=== PATIENT | female | born 1970 | race Caucasian/White ===

== ENCOUNTER 2019-10-20 12:48 | Outpatient (CLI) | payer MEDICARE, MEDICAID, SELFPAY ==
--- NOTE | 2019-10-20 13:11 | MM_ITS ---
WS: [id number] BILATERAL DIGITAL SCREENING MAMMOGRAPHY WITH CAD CLINICAL INFORMATION: SCREENING HISTORY: Screening mammogram. Right breast burning. Bilateral breast reduction. COMPARISON: July 08, 2018 TECHNIQUE: Bilateral CC and MLO views. FINDINGS: Scattered fibroglandular densities bilaterally. No suspicious focal mass, asymmetry, calcifications, or architectural distortion. Lucent centered calcification. Dystrophic calcification right breast. No evidence of malignancy. MM/[id number] IMPRESSION: BI-RADS: 2-Benign FOLLOW UP: 1 Year Follow-up Recommend return to annual screening mammography.
== END 2019-10-20 12:49 | disposition home or self-care (01) ==
LOC: RADSHAW 12:56
PROVIDERS: Family Provider Family Medicine; PCP Family Medicine; Visit Provider Family Medicine
DX: Z12.31 Encounter for screening mammogram for malignant neoplasm of breast (principal)
CPT/HCPCS: 77067

== ENCOUNTER → 2020-01-14 08:06 | Outpatient (BNVA) | payer MEDICARE, MEDICAID, SELFPAY | PROVIDERS: Family Provider Family Medicine; PCP Family Medicine; Visit Provider Nurse Practitioner Psychiatric/Mental Health | DX: F33.42 Major depressive disorder, recurrent, in full remission (principal); F43.12 Post-traumatic stress disorder, chronic | CPT/HCPCS: 99213 ==

== ENCOUNTER → 2020-04-10 14:19 | Outpatient (BNVA) | payer MEDICARE, MEDICAID, SELFPAY | PROVIDERS: Family Provider Family Medicine; PCP Family Medicine; Visit Provider Specialist | DX: G56.02 Carpal tunnel syndrome, left upper limb (principal) | CPT/HCPCS: 73110 ==

== ENCOUNTER → 2020-04-14 07:41 | Outpatient (BNVA) | payer MEDICARE, MEDICAID, SELFPAY | PROVIDERS: Family Provider Family Medicine; PCP Family Medicine; Visit Provider Nurse Practitioner Psychiatric/Mental Health | DX: F33.42 Major depressive disorder, recurrent, in full remission (principal); F43.12 Post-traumatic stress disorder, chronic | CPT/HCPCS: 99213 ==

== ENCOUNTER → 2020-04-26 10:15 | Outpatient (BNVA) | payer MEDICARE, MEDICAID, SELFPAY | PROVIDERS: Family Provider Family Medicine; PCP Family Medicine; Visit Provider Internal Medicine | DX: G56.02 Carpal tunnel syndrome, left upper limb (principal) | CPT/HCPCS: 87635 ==

== ENCOUNTER 2020-04-28 05:50 | Day surgery (SDC) | payer MEDICARE, MEDICAID, SELFPAY ==
[2020-04-27 10:16] VITALS: BMI 37.5
[2020-04-28 06:00] VITALS: BP 141/94; PULSE 110; RESP 16; TEMP 36.7; O2SAT 100
--- NOTE | 2020-04-28 06:17 | ANES.PREANE2 ---
Pre-Anesthetic Assessment Pre-Anesthetic Assessment: Height/Weight: Height 1.57 m Weight 92.986 kg Temp Pulse Resp BP Pulse Ox 98.1 F 110 H 16 141/94 100 04/28/20 06:00 04/28/20 06:00 04/28/20 06:00 04/28/20 06:00 04/28/20 06:00 Preop Diagnosis: Left carpal tunnel syndrome Proposed Procedure: Operation Date: 04/28/20 07:00 Proposed Procedures p Carpal Tunnel Release 11949 G56.02(Left) - Nell Allan MD Familial anesthetic complications: None Was Beta Miriam taken within 24 hours: N/A Last intake: Intake Last Liquid Date 04/27/20 Last Liquid Time 18:00 Last Solid Date 04/27/20 Last Solid Time 18:00 Social: Social History: No alcohol and No tobacco Exam: Pre-Anes Outpt Exam: alert, oriented x 3, clear to auscultation bilaterally and regular rate & rhythm Airway: Cervical ROM: WNL MP: 4 Dentition: False Additional comments: small mouth opening Pulmonary: Pulmonary: Asthma CV/HEM: CV/HEM: HTN GI: GI: GERD Metabolic: Metabolic: Hyperlipidemia and Morbid obesity Neuropsych: Neuropsych: None reported Comments: PTSD Anesthetic Plan: ASA status: 2 Anesthesia: MAC Risk of > 500 ml blood loss (7ml/kg in children): No PFSH Anesthesia PFSH: Medical History Chronic post-traumatic stress disorder Major depressive disorder, recurrent, in full remission with anxious distress Female Reproductive History: Date of last menstrual period: 03/22/20 Data Anesthesia Cardiac Studies: No Data to Display
[2020-04-28] MEDS: CELEcoxib 200 mg Capsule 400 MG PO (06:19)
[2020-04-28] MEDS: sodium chloride 0.9% 1,000 ML 30 ML IV (06:19)
[2020-04-28 06:43] LABS: OR HCG Qualitative Urine Negative (Negative)
--- NOTE | 2020-04-28 06:48 | P.HPUD_ITS ---
Surgery/Procedure H&P Update DATE OF PROCEDURE: April 28, 2020 DATE H&P PERFORMED: 04/10/20 H&P UPDATE INFORMATION: I have reviewed H&P completed within last 30 days, I have examined patient prior to procedure, No changes to prior documentation and H&P is in [facility] EMR on date indicated PREOP DIAGNOSIS: Left carpal tunnel syndrome PLANNED PROCEDURE: Operation Date: 04/28/20 07:00 Proposed Procedures p Carpal Tunnel Release 40257 G56.02(Left) - Nell Allan MD
--- NOTE | 2020-04-28 07:49 | PM.OP ---
Operative Report Date of procedure: April 28, 2020 Pre-op Diagnosis: Left carpal tunnel syndrome Post-op diagnosis: same Post-op Findings: Compression across the left median nerve Procedure Done: Left carpal tunnel release Specimens removed/disposition: None Pathology: none sent Surgeon: Nell Allan Management Trainee Marketing: None Anesthesia: MAC (With Samir block) Estimated blood loss (mL): 1 Tourniquet time (min): 28 Tourniquet time: 28 minutes at 250 mmHg IV fluids (mL): 500 Urine output (mL): 0 Urine output: No Ball Complications: None Findings: Compressed median nerve with discoloration Condition: stable Disposition: same day Brief History: This 49-year-old woman presented with complaints of severe numbness and tingling in her hand which interfered with her activities of daily living. She was also unable to perform normal activities of her job. After discussion with the patient, she wished to proceed with carpal tunnel release. This was discussed with her guardian as well. All were in agreement. Procedure: The patient was brought to the operating theater. The patient had a Samir block with MAC. The tourniquet was elevated to 250 mmHg for a total tourniquet time of 28 minutes. The arm was then prepped and draped with DuraPrep in usual fashion with the arm draped free. A surgical pause was performed. At the time, the surgical pause, we confirmed the site and side of surgery. We also confirmed the patient's identity and preoperative surgical markings. An incision was then made along the thenar crease. The incision crossed the wrist joint in a curvilinear fashion. Dissection continued through skin and soft tissues using a scalpel. The palmaris longus was identified along with the transverse carpal ligament. Each of these was released carefully to avoid injury to the median nerve. We were able to dissect gently into the carpal canal which was noted to be quite tight with significant compression across the median nerve. The nerve was visualized and was an hourglass shape with discoloration. The canal was subsequently palpated to assure there was no bony encroachment upon the canal. The canal was then palpated distally and proximally to assure that my small finger was passed easily without impingement. Finding this to be so, attention was directed to closure. The wound was irrigated with ropivacaine plain. It was then closed with 3-0 nylon in an interrupted mattress fashion. Local anesthetic was injected. Sterile dressing was then placed consisting of Xeroform gauze, fluffed fluffs, sterile soft roll, a volar splint, and an Edgard wrap. The tourniquet was released after 28 minutes. There were no complications. There were no specimens. The procedure was well tolerated. Plan is the patient will be discharged home. Associated Problem List Diagnoses (1) Carpal tunnel syndrome, left:
[2020-04-28 07:54] VITALS: BP 133/83; PULSE 96; RESP 18; TEMP 36.2; O2SAT 96
[2020-04-28 08:25] VITALS: BP 135/82; PULSE 94; RESP 18; O2SAT 100
== END 2020-04-28 08:30 | disposition home or self-care (01) ==
PROVIDERS: Anesthesiology; PCP Family Medicine; Visit Provider Specialist
PROC: (CPT 64721; principal; 2020-04-28 07:00)
DX: G56.02 Carpal tunnel syndrome, left upper limb (principal); J45.909 Unspecified asthma, uncomplicated; I10 Essential (primary) hypertension; K21.9 Gastro-esophageal reflux disease without esophagitis; E78.5 Hyperlipidemia, unspecified; E66.01 Morbid (severe) obesity due to excess calories; Z68.37 Body mass index [BMI] 37.0-37.9, adult
CPT/HCPCS: 64721; 12345; 81025; 84703; 96365; J0131; J2250; J2704; J3490; J7030

== ENCOUNTER → 2020-07-14 07:36 | Outpatient (BNVA) | payer MEDICARE, MEDICAID, SELFPAY | PROVIDERS: Family Provider Family Medicine; PCP Family Medicine; Visit Provider Nurse Practitioner Psychiatric/Mental Health | DX: F33.42 Major depressive disorder, recurrent, in full remission (principal); F43.12 Post-traumatic stress disorder, chronic | CPT/HCPCS: 99213 ==

== ENCOUNTER → 2020-10-13 07:40 | Outpatient (BNVA) | payer MEDICARE, MEDICAID, SELFPAY | PROVIDERS: Family Provider Family Medicine; PCP Family Medicine; Visit Provider Nurse Practitioner Psychiatric/Mental Health | DX: F33.42 Major depressive disorder, recurrent, in full remission (principal); F43.12 Post-traumatic stress disorder, chronic | CPT/HCPCS: 99214 ==

== ENCOUNTER 2020-11-17 11:03 | Outpatient (CLI) | payer MEDICARE, MEDICAID, SELFPAY ==
--- NOTE | 2020-11-17 11:07 | MM_ITS ---
WS: [id number] BILATERAL DIGITAL SCREENING MAMMOGRAM WITH CAD CLINICAL INFORMATION: SCREENING HISTORY: Screening mammogram. No current complaints. COMPARISON: October 20, 2019 TECHNIQUE: Bilateral CC and MLO views. FINDINGS: History of bilateral breast reduction. Fatty-replaced breasts bilaterally. No suspicious focal mass, asymmetry, calcifications, or network architect ural distortion. No evidence of malignancy. Dystrophic calcifications right breast are unchanged. Antonio ent centered calcifications. MM/[place] [id number] IMPRESSION: BI-RADS: 2-Benign FOLLOW UP: 1 Year Follow-up Recommend return to annual screening mammography.
== END 2020-11-17 11:04 | disposition home or self-care (01) ==
LOC: RADSHAW 11:04
PROVIDERS: PCP Family Medicine; Visit Provider Nurse Practitioner Family
DX: Z12.31 Encounter for screening mammogram for malignant neoplasm of breast (principal)
CPT/HCPCS: 77067

== ENCOUNTER → 2020-12-01 12:17 | Outpatient (BNVA) | payer MEDICARE, MEDICAID, SELFPAY | PROVIDERS: PCP Nurse Practitioner Family; Visit Provider Nurse Practitioner Family | DX: H60.90 Unspecified otitis externa, unspecified ear (principal); I10 Essential (primary) hypertension; E78.5 Hyperlipidemia, unspecified; E55.9 Vitamin D deficiency, unspecified; Z79.899 Other long term (current) drug therapy | CPT/HCPCS: 80053; 80061; 81003; 82306; 83036; 84439; 84443; 84481; 85025 ==

== ENCOUNTER → 2021-01-19 07:54 | Outpatient (BNVA) | payer MEDICARE, MEDICAID, SELFPAY | PROVIDERS: PCP Nurse Practitioner Family; Visit Provider Nurse Practitioner Psychiatric/Mental Health | DX: F33.42 Major depressive disorder, recurrent, in full remission (principal); F43.12 Post-traumatic stress disorder, chronic | CPT/HCPCS: 99214 ==

== ENCOUNTER 2021-05-15 13:23 | Outpatient (CLI) | payer MEDICARE, MEDICAID, SELFPAY ==
--- NOTE | 2021-05-15 13:30 | USCV_ITS ---
EdOlga Age: 50 Gender: F : 1970 Exam Date: 05/15/2021 13:22 Ordering Phys: ML Gee APRNP Technologist: Exam Location: [facility] [place] Indication: FOOT PAIN RIGHT LEFT Brachial 138.00 mmHg Brachial 136.00 mmHg Pressure (mmHg) Waveform Pressure (mmHg) Waveform 137.00 WEB MERCHANT 133.00 DPA 0.96 Ankle/Brachial Index 62.00 Pre-Exercise Toe Pressure 69.00 0.45 Pre-Exercise Toe/Brachial Index 0.50 FINDINGS Near normal resting ABIs bilaterally, 0.99 on the right and 0.96 on the left Slightly diminished resting TBIs bilaterally. 0.45 and 0.50 respectively CONCLUSIONS Normal resting ABIs with slightly diminished resting TBIs bilaterally may suggest mild peripheral artery disease involving the distal vessels. Clinical correlation is recommended No similar previous studies are available for comparison Dr Everton Doss MD [facility] (Electronically Signed) Final Date: 15 May 2021 19:44 S
== END 2021-05-15 13:24 | disposition home or self-care (01) ==
LOC: RAD 13:29
PROVIDERS: PCP Nurse Practitioner Family; Visit Provider Nurse Practitioner Family
DX: R60.0 Localized edema (principal); I73.9 Peripheral vascular disease, unspecified; M79.671 Pain in right foot
CPT/HCPCS: 93922

== ENCOUNTER → 2021-07-13 07:56 | Outpatient (BNVA) | payer MEDICARE, MEDICAID, SELFPAY | PROVIDERS: PCP Nurse Practitioner Family; Visit Provider Nurse Practitioner Psychiatric/Mental Health | DX: F33.42 Major depressive disorder, recurrent, in full remission (principal); F43.12 Post-traumatic stress disorder, chronic | CPT/HCPCS: 99214 ==

== ENCOUNTER → 2021-09-07 12:10 | Outpatient (BNVA) | payer MEDICARE, MEDICAID, SELFPAY | PROVIDERS: PCP Nurse Practitioner Family; Visit Provider Nurse Practitioner Family | DX: I10 Essential (primary) hypertension (principal); M25.562 Pain in left knee | CPT/HCPCS: 80053; 85025 ==

== ENCOUNTER → 2021-09-10 09:06 | Outpatient (BNVA) | payer MEDICARE, MEDICAID, SELFPAY | PROVIDERS: PCP Nurse Practitioner Family; Visit Provider Nurse Practitioner Family | DX: M25.562 Pain in left knee (principal) | CPT/HCPCS: 73562 ==

== ENCOUNTER → 2021-10-19 07:35 | Outpatient (BNVA) | payer MEDICARE, MEDICAID, SELFPAY | PROVIDERS: PCP Nurse Practitioner Family; Visit Provider Nurse Practitioner Psychiatric/Mental Health | DX: F33.42 Major depressive disorder, recurrent, in full remission (principal); F43.12 Post-traumatic stress disorder, chronic | CPT/HCPCS: 99214 ==

== ENCOUNTER 2022-01-11 10:19 | Outpatient (CLI) | payer MEDICARE, MEDICAID, SELFPAY ==
--- NOTE | 2022-01-11 10:32 | MM_ITS ---
WS: [id number] Exam: [place] [id number] Date/Time of Exam: 01/11/2022 10:32 AM Reason For Exam: SCREENING VIEWS: MLO and CC views both breasts. 3D digital tomosynthesis is also included in this exam. Comparison made with prior exam of 01/27/2015, 02/02/2016, 02/03/2017, 07/08/2018, 10/20/2019. 11/17/2020.. Findings: There was no sign of mass, architectural distortion or suspicious calcification in either breast. Fa tty MM/[place] [id number] Impression: BI-RADS: 2-Benign FOLLOW-UP: 1 Year Follow-up This mammogram was also analyzed by the Computer Aided Detection System R2 Imag e Reinstatement Clerk.
== END 2022-01-11 10:20 | disposition home or self-care (01) ==
LOC: RAD 10:25
PROVIDERS: PCP Nurse Practitioner Family; Visit Provider Nurse Practitioner
DX: Z12.31 Encounter for screening mammogram for malignant neoplasm of breast (principal)
CPT/HCPCS: 77063; 77067

== ENCOUNTER → 2022-01-18 08:00 | Outpatient (BNVA) | payer MEDICARE, MEDICAID, SELFPAY | PROVIDERS: PCP Nurse Practitioner Family; Visit Provider Nurse Practitioner Psychiatric/Mental Health | DX: F33.42 Major depressive disorder, recurrent, in full remission (principal); F43.12 Post-traumatic stress disorder, chronic | CPT/HCPCS: 99214 ==

== ENCOUNTER → 2022-02-01 10:16 | Outpatient (BNVA) | payer MEDICARE, MEDICAID, SELFPAY | PROVIDERS: PCP Nurse Practitioner Family; Visit Provider Nurse Practitioner | DX: H91.90 Unspecified hearing loss, unspecified ear (principal); Z79.899 Other long term (current) drug therapy; J30.2 Other seasonal allergic rhinitis | CPT/HCPCS: 80053; 81000; 85025 ==

== ENCOUNTER → 2022-05-17 09:46 | Outpatient (BNVA) | payer MEDICARE, MEDICAID, SELFPAY | PROVIDERS: PCP Nurse Practitioner Family; Visit Provider Nurse Practitioner | DX: E55.9 Vitamin D deficiency, unspecified (principal); I10 Essential (primary) hypertension; E78.2 Mixed hyperlipidemia; Z79.899 Other long term (current) drug therapy; R60.9 Edema, unspecified | CPT/HCPCS: 80053; 80061; 81003; 82306; 83036; 84443; 85025 ==

== ENCOUNTER 2023-01-31 06:52 | Outpatient (CLI) | payer MEDICARE, MEDICAID, SELFPAY ==
--- NOTE | 2023-01-31 07:34 | MM_ITS ---
WS: [id number] Bilateral screening 3D tomosynthesis digital mammogram, 01/31/2023 Clinical Data: Z12.39 - Encounter for other screening for malignant neop... Comparison: 01/11/2022, 11/17/2020, 10/20/2019, 07/08/2018, 02/03/2017, 02/02/2016, 01/27/2015, 01/21/2014, , 10/11/2011, 11/03/2009. Findings: The breast parenchymal pattern shows fat replacement. No spiculated masses or clustered calcification s are seen. There are no secondary signs of carcinoma. There is a scar in the lateral aspect of the r ight breast with dystrophic calcification unchanged. MM/[place] [id number] Impression: 1. Negative bilateral mammogram unchanged. 2. Recommend annual screening mammograms. BIRADS: 2-Benign FOLLOW UP: 1 Year Follow-up The CAD electric organ assembler and checker was used.
== END 2023-01-31 06:53 | disposition home or self-care (01) ==
LOC: RAD 06:58
PROVIDERS: PCP Nurse Practitioner; Visit Provider Nurse Practitioner
DX: I10 Essential (primary) hypertension (principal); R60.9 Edema, unspecified; E78.2 Mixed hyperlipidemia
CPT/HCPCS: 77063; 77067; 80053; 80061; 81000; 84443; 85025

== ENCOUNTER → 2023-06-27 11:46 | Outpatient (BNVA) | payer MEDICARE, MEDICAID, SELFPAY | PROVIDERS: PCP Nurse Practitioner; Visit Provider Nurse Practitioner | DX: I10 Essential (primary) hypertension (principal); Z79.899 Other long term (current) drug therapy; E78.2 Mixed hyperlipidemia | CPT/HCPCS: 80053; 80061; 81000; 83036; 84443; 85025 ==

== ENCOUNTER → 2023-12-26 09:52 | Outpatient (BNVA) | payer MEDICARE, MEDICAID, SELFPAY | PROVIDERS: PCP Nurse Practitioner; Visit Provider Nurse Practitioner Family | DX: Z79.899 Other long term (current) drug therapy (principal); I10 Essential (primary) hypertension; E78.2 Mixed hyperlipidemia | CPT/HCPCS: 80053; 80061; 81003; 83036; 84443; 85025 ==

== ENCOUNTER → 2024-01-27 08:21 | Outpatient (BNVA) | payer MEDICARE, MEDICAID, SELFPAY | PROVIDERS: PCP Nurse Practitioner; Referring Provider Nurse Practitioner Family; Visit Provider Surgery | DX: Z12.11 Encounter for screening for malignant neoplasm of colon (principal) | CPT/HCPCS: 99024; 99204 ==

== ENCOUNTER 2024-02-06 08:37 | Outpatient (CLI) | payer MEDICARE, MEDICAID, SELFPAY ==
--- NOTE | 2024-02-06 08:43 | MM_ITS ---
WS: [id number] BILATERAL SCREENING DIGITAL TOMOSYNTHESIS MAMMOGRAM WITH CAD HISTORY: SCREENING COMPARISON: 01/31/2023, 01/11/2022 and 10/20/2019 Bilateral CC and MLO views with tomosynthesis and synthetic mammography submitted. Computer aided det ection analyzed. Breast composition: There are scattered areas of fibroglandular density. No suspicious masses, microc alcifications or architectural distortion. Scar with dystrophic calcifications involving the central lateral RIGHT breast. No additional abnormalities. No masses or distortion. MM/[place] [id number] IMPRESSION: BI-RADS: 2-Benign FOLLOW UP: 1 Year Follow-up
== END 2024-02-06 08:38 | disposition home or self-care (01) ==
LOC: RAD 08:37
PROVIDERS: PCP Nurse Practitioner; Visit Provider Nurse Practitioner Family
DX: Z12.31 Encounter for screening mammogram for malignant neoplasm of breast (principal)
CPT/HCPCS: 77063; 77067

== ENCOUNTER 2024-05-13 09:32 | Day surgery (SDC) | payer MEDICARE, MEDICAID, SELFPAY ==
[2024-05-13 09:36] VITALS: BMI 39.3
[2024-05-13 09:44] VITALS: BP 166/113; PULSE 111; RESP 20; TEMP 36.1; O2SAT 98
--- NOTE | 2024-05-13 10:02 | ANES.PREANE2 ---
Pre-Anesthetic Assessment Height/Weight: Height 1.57 m Weight 97.522 kg Temp Pulse Resp BP Pulse Ox O2 Del Method 97 F L 111 H 20 H 166/113 98 Room Air 05/13/24 09:44 05/13/24 09:44 05/13/24 09:44 05/13/24 09:44 05/13/24 09:44 05/13/24 09:44 Operation Date: 05/13/24 10:25 Proposed Procedures p Colonoscopy 08728, G0121, Z12.11(Not Applicable) - Hipolito Deleon MD Familial anesthetic complications: None Was Beta Miriam taken within 24 hours: N/A Was Clonidine taken within 24 hours: N/A Last intake: Intake Last Liquid Date 05/12/24 Last Liquid Time 20:00 Last Solid Date 05/11/24 Last Solid Time 18:30 Social No alcohol and No tobacco Exam alert, oriented x 3, clear to auscultation bilaterally and regular rate & rhythm Airway Mallampati: Class III Dentition: other (no teeth) Pulmonary Chronic Obstructive Pulmonary Disease CV/HEM Hypertension GI Gastroesophageal Reflux Disease Metabolic Hyperlipidemia Anesthetic Plan ASA status: 3 Anesthesia: MAC Risk of > 500 ml blood loss (7ml/kg in children): No Medications/Allergies Home Medications Medication Instructions Recorded Confirmed Last Taken Type cetirizine 10 mg tablet (Zyrtec) 10 mg PO DAILY 10/18/19 05/11/24 05/12/24 History compr.stocking,thigh,reg,x-lrg #12 ea 06/08/21 04/16/24 Unknown Rx melatonin 5 mg tablet 5 mg PO .at bed 04/19/22 05/11/24 05/12/24 History ferrous sulfate 324 mg (65 mg 324 mg PO DAILY 01/27/24 05/11/24 05/12/24 History iron) tablet,delayed release prazosin 1 mg capsule 1 mg PO BEDTIME #30 caps 04/16/24 05/11/24 05/12/24 Rx venlafaxine 150 mg 150 mg PO BID #60 caps 04/16/24 05/11/24 05/12/24 Rx capsule,extended release 24 hr (Effexor XR) atorvastatin 40 mg tablet 40 mg PO DAILY 05/11/24 05/11/24 05/12/24 History fluticasone propionate 50 1 - 2 spray intranasal DAILY PRN 05/11/24 05/11/24 05/12/24 History mcg/actuation nasal Nasal Congestion spray,suspension furosemide 40 mg tablet 40 mg PO DAILY 05/11/24 05/11/24 05/12/24 History lisinopril 10 mg tablet 10 mg PO DAILY 05/11/24 05/11/24 05/12/24 History mirabegron 25 mg tablet,extended 25 mg PO DAILY 05/11/24 05/11/24 05/12/24 History release 24 hr (Myrbetriq) montelukast 10 mg tablet 10 mg PO DAILY 05/11/24 05/11/24 05/12/24 History naproxen 500 mg tablet 500 mg PO BID 05/11/24 05/11/24 05/12/24 History pantoprazole 40 mg tablet,delayed 40 mg PO BID 05/11/24 05/11/24 05/12/24 History release potassium chloride 20 mEq 20 meq PO DAILY 05/11/24 05/11/24 05/12/24 History tablet,extended release(part/cryst) Allergies Allergy/AdvReac Type Severity Reaction Status Date / Time adhesive Allergy Unknown Unknown Verified 05/11/24 10:25 [facility] Anesthesia Medical History (Updated 03/19/24 @ 10:11 by RICO Farrell) Skin tag Encounter for medication review Elevated serum creatinine Colon cancer screening Left knee pain Psychiatric care Edema Claudication Otitis media Environmental and seasonal allergies GERD (gastroesophageal reflux disease) Vitamin D deficiency Essential hypertension Hyperlipemia Otitis externa Otitis media of both ears Chronic post-traumatic stress disorder Major depressive disorder, recurrent, in full remission with anxious distress Social History Smoking and tobacco/nicotine status: former use of tobacco/nicotine Current occupation: disabled - sheltered workshop Data Anesthesia Cardiac Studies: No Data to Display
--- NOTE | 2024-05-13 10:04 | W.PM.OPSFHP ---
Same Day Surgery H&P Indication for Procedure/HPI DATE OF PROCEDURE: May 13, 2024 CHIEF COMPLAINT/INDICATIONFOR SURGICAL PROCEDURE: need for screening colonoscopy PREOP DIAGNOSIS: need for screening colonoscopy PLANNED PROCEDURE: Operation Date: 05/13/24 10:25 Proposed Procedures p Colonoscopy 80124, G0121, Z12.11(Not Applicable) - Hipolito Deleon MD Medications/Allergies* Home Medications Medication Instructions Recorded Confirmed Type cetirizine 10 mg tablet (Zyrtec) 10 mg PO DAILY 10/18/19 05/11/24 History melatonin 5 mg tablet 5 mg PO .at bed 04/19/22 05/11/24 History ferrous sulfate 324 mg (65 mg 324 mg PO DAILY 01/27/24 05/11/24 History iron) tablet,delayed release atorvastatin 40 mg tablet 40 mg PO DAILY 05/11/24 05/11/24 History fluticasone propionate 50 1 - 2 spray intranasal DAILY PRN 05/11/24 05/11/24 History mcg/actuation nasal Nasal Congestion spray,suspension furosemide 40 mg tablet 40 mg PO DAILY 05/11/24 05/11/24 History lisinopril 10 mg tablet 10 mg PO DAILY 05/11/24 05/11/24 History mirabegron 25 mg tablet,extended 25 mg PO DAILY 05/11/24 05/11/24 History release 24 hr (Myrbetriq) montelukast 10 mg tablet 10 mg PO DAILY 05/11/24 05/11/24 History naproxen 500 mg tablet 500 mg PO BID 05/11/24 05/11/24 History pantoprazole 40 mg tablet,delayed 40 mg PO BID 05/11/24 05/11/24 History release potassium chloride 20 mEq 20 meq PO DAILY 05/11/24 05/11/24 History tablet,extended release(part/cryst) Allergies/Adverse Reactions Allergy/AdvReac Type Severity Reaction Status Date / Time adhesive Allergy Unknown Unknown Verified 05/11/24 10:25 Pertinent History/Comorbid Conditions* Medical History (Updated 03/19/24 @ 10:11 by RICO Farrell) Skin tag Encounter for medication review Elevated serum creatinine Colon cancer screening Left knee pain Psychiatric care Edema Claudication Otitis media Environmental and seasonal allergies GERD (gastroesophageal reflux disease) Vitamin D deficiency Essential hypertension Hyperlipemia Otitis externa Otitis media of both ears Chronic post-traumatic stress disorder Major depressive disorder, recurrent, in full remission with anxious distress Social History Smoking and tobacco/nicotine status: former use of tobacco/nicotine Current occupation: disabled - sheltered workshop Pertinent Exam Findings alert, oriented x 3, clear to auscultation bilaterally and regular rate & rhythm Recommendations Surgery/Procedure today Coding Level of Care Code Acute Code for Chg Fwd
[2024-05-13 10:15] LABS: OR HCG Qualitative Urine Negative (Negative)
[2024-05-13] MEDS: sodium chloride 0.9% 1,000 ML 30 ML IV (10:16)
[2024-05-13 11:13] VITALS: BP 119/88; PULSE 90; RESP 16; TEMP 36.8; O2SAT 100
[2024-05-13 11:24] VITALS: BP 144/102; PULSE 89; RESP 16; O2SAT 99
--- NOTE | 2024-05-13 11:40 | ANE.PACU2 ---
Inpatient post-anesthesia follow up: Airway intact: Yes Vital signs: Temperature 98.2 F Pulse Rate 89 Respiratory Rate 16 Blood Pressure 144/102 Pulse Oximetry 99 Oxygen Delivery Me thod Room Air Oxygen Flow Rate 2 Fraction of Inspir ed Oxygen Hydration adequate: Yes Nausea and vomiting: No Pain level: 1 Mental status: Baseline
== END 2024-05-13 11:43 | disposition home or self-care (01) ==
PROVIDERS: Anesthesiology; PCP Nurse Practitioner Family; Visit Provider Surgery
PROC: 0DJD8ZZ Inspection of Lower Intestinal Tract, Via Natural or Artificial Opening Endoscopic (ICD-10-PCS; CPT 45378; principal; 2024-05-13 10:25)
DX: Z12.11 Encounter for screening for malignant neoplasm of colon (principal); K62.1 Rectal polyp; J44.9 Chronic obstructive pulmonary disease, unspecified; I10 Essential (primary) hypertension; E78.5 Hyperlipidemia, unspecified; Z87.891 Personal history of nicotine dependence
CPT/HCPCS: 45380; 81025; 88305; J2704; J7030

== ENCOUNTER → 2024-06-09 11:15 | Outpatient (BNVA) | payer MEDICARE, MEDICAID, SELFPAY | PROVIDERS: PCP Nurse Practitioner Family; Visit Provider Surgery | DX: Z09 Encounter for follow-up examination after completed treatment for conditions other than malignant neoplasm (principal) | CPT/HCPCS: 99212 ==

== ENCOUNTER → 2024-07-30 11:34 | Outpatient (BNVA) | payer MEDICARE, MEDICAID, SELFPAY | PROVIDERS: PCP Nurse Practitioner Family; Visit Provider Nurse Practitioner Family | DX: Z12.4 Encounter for screening for malignant neoplasm of cervix (principal); Z01.419 Encounter for gynecological examination (general) (routine) without abnormal findings; N89.8 Other specified noninflammatory disorders of vagina | CPT/HCPCS: 87070; 87205; 87624 ==

== ENCOUNTER → 2024-09-03 09:44 | Outpatient (BNVA) | payer MEDICARE, MEDICAID, SELFPAY | PROVIDERS: PCP Nurse Practitioner Family; Visit Provider Nurse Practitioner Family | DX: E55.9 Vitamin D deficiency, unspecified (principal); R73.09 Other abnormal glucose; E78.2 Mixed hyperlipidemia; I10 Essential (primary) hypertension; R79.89 Other specified abnormal findings of blood chemistry | CPT/HCPCS: 80053; 80061; 81003; 82306; 83036; 84443; 85025 ==

== ENCOUNTER 2025-02-23 11:23 | Outpatient (CLI) | payer MEDICARE, MEDICAID, SELFPAY ==
--- NOTE | 2025-02-23 12:00 | MM_ITS ---
WS: [id number] BILATERAL SCREENING DIGITAL TOMOSYNTHESIS MAMMOGRAM WITH CAD HISTORY: SCREENING, status post mammoplasty. COMPARISON: None available. Bilateral CC and MLO views with tomosynthesis and synthetic mammography submitted. Computer aided detection analyzed. Breast composition: The breasts are almost entirely fatty. No suspicious masses, microcalcifications or architectural distortion. Postsurgical changes of mammoplasty are noted in each breast. Within the mammoplasty site of the RIGHT breast there is dense dystrophic calcification. No suspicious grouping of calcifications. MM/MM scr tomosynthesis [id number] IMPRESSION: BI-RADS: 2 - Benign. FOLLOW UP: 1 Year Follow-up
== END 2025-02-23 11:24 | disposition home or self-care (01) ==
LOC: MOBLMAM 11:23
PROVIDERS: PCP Nurse Practitioner Family; Visit Provider Nurse Practitioner Family
DX: Z12.31 Encounter for screening mammogram for malignant neoplasm of breast (principal); R92.313 Mammographic fatty tissue density, bilateral breasts; Z98.890 Other specified postprocedural states; R92.1 Mammographic calcification found on diagnostic imaging of breast
CPT/HCPCS: 77063; 77067

== ENCOUNTER → 2025-06-17 10:17 | Outpatient (BNVA) | payer MEDICARE, MEDICAID, SELFPAY | PROVIDERS: PCP Nurse Practitioner Family; Visit Provider Nurse Practitioner Family | DX: R79.89 Other specified abnormal findings of blood chemistry (principal); R79.9 Abnormal finding of blood chemistry, unspecified; E78.2 Mixed hyperlipidemia; I10 Essential (primary) hypertension; R73.09 Other abnormal glucose; E55.9 Vitamin D deficiency, unspecified; Z79.899 Other long term (current) drug therapy; R60.9 Edema, unspecified | CPT/HCPCS: 80053; 80061; 81003; 82306; 83036; 84443; 85025; 87077; 87086; 87184 ==